=== PATIENT | female | born 1995 | race Caucasian/White ===

== ENCOUNTER 2018-01-18 11:25 | Emergency (ER) | payer SELFPAY ==
[2018-01-18] MEDS ORDERED: Bacitracin Zinc 1 Packet ONE (11:52)
[2018-01-18] MEDS ORDERED: HYDROcodone/Acetaminophen 5/325 mg Tablet ONE (12:52)
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
== END 2018-01-18 13:03 | disposition home or self-care (01) ==
LOC: SCSER 11:25
DX: S16.1XXA Strain of muscle, fascia and tendon at neck level, initial encounter (principal); S50.312A Abrasion of left elbow, initial encounter; V43.52XA Car driver injured in collision with other type car in traffic accident, initial encounter
CPT/HCPCS: 72040